=== PATIENT | female | born 1965 | race Caucasian/White ===

== ENCOUNTER 2017-08-09 18:30 | Emergency (ER) | END 2017-08-10 01:16 | disposition home or self-care (01) ==

== ENCOUNTER 2018-03-29 12:13 | Emergency (ER) | END 2018-03-29 14:05 | disposition home or self-care (01) ==

== ENCOUNTER 2018-09-16 12:27 | Emergency (ER) | payer MEDICAID ==
[~2018-09-16] VITALS: Ht 167.6 cm; Wt 97.5 kg
[~2018-09-16 12:27] MED LIST: ALBU2.5V3 NEB; ALBU8.5H8 INH; AZIT250T PO; BECL8.7A INH; D-ME473S2 PO; DICL100G37 TOP; FLUT12HF IH; GUAI5SYR2 PO; IBUP-1542 PO; OMEP20CA16 PO; PHENTERMINE
[2018-09-16 12:51] VITALS: Ht 167.6 cm; Wt 97.5 kg
[2018-09-16] MEDS ORDERED: DICL100G37 TOP (14:11)
[2018-09-16] MEDS ORDERED: BENZ-6 PO (14:12)
[2018-09-16] MEDS ORDERED: ALBU18HF INHALATION (14:12)
[2018-09-16] MEDS ORDERED: ACET500C5 PO (14:13)
[2018-09-16 14:43] VITALS: BP 132/62; PULSE 66; RESP 20
--- NOTE | 2018-09-16 15:01 | ERD ---
ER Documentation Chief Complaint Chief Complaint Complains of a cough x 3 days HPI 52-year-old female patient with a past medical history of asthma presents the ED complaining of cough that started intermittently for the last 3 years, patient reports that she has chronic cough. Reports that she also has arthritis. States that she is here for medication refill for her cough as well as her arthritic pain. Denies any chest pain, shortness of breath, nausea, vomiting, diarrhea, neck stiffness. Patient reports that she has some left flank pain. Denies any dysuria, urgency, frequency, hematuria. Patient denies any trauma or injuries. Denies any smoking, alcohol use, drug use. ROS All systems reviewed and are negative except as per history of present illness. Medications Home Meds Active Scripts Acetaminophen* (Tylophen*) 500 Mg Capsule, 1 CAP PO Q6H PRN for PAIN AND OR ELEVATED TEMP, #20 CAP Prov:JOHN HUDSON PA-C 09/16/18 Albuterol Sulfate* (Ventolin HFA*) 18 Gm Hfa.aer.ad, 2 PUFF INHALATION Q4H, #1 INHALER Prov:JOHN HUDSON PA-C 09/16/18 Benzonatate* (Tessalon Perle*) 100 Mg Capsule, 100 MG PO Q8H PRN for COUGH, #20 CAP Prov:JOHN HUDSON PA-C 09/16/18 Diclofenac Sodium* (Voltaren* Gel) 1% -100 Gm Gel, 2 GM TOP QID, #1 TUB Prov:JOHN HUDSON PA-C 09/16/18 Diclofenac Sodium* (Voltaren* Gel) 1% -100 Gm Gel, 2 GM TOP QID, #1 TUB Prov:FILOMENA FENTON PA-C 03/29/18 Albuterol Sulfate* (Proair HFA*) 8.5 Gm Hfa.aer.ad, 2 PUFF INH Q4, #1 INHALER Prov:FILOMENA FENTON PA-C 03/29/18 Salmeterol Xinaf-Fluticasone* (Advair HFA*) 45/212 Aerosol Inhaler, 2 INH IH BID, #1 INHALER Prov:FILOMENA FENTON PA-C 03/29/18 Omeprazole* (Omeprazole*) 20 Mg Capsule.dr, 20 MG PO BID, #20 Prov:FILOMENA FENTON PA-C 03/29/18 Dextromethorphan Hb-Promethazine Hcl* (Promethazine DM* Syrup) 473 Ml Syrup, 5 ML PO Q6 PRN for COUGH for 5 Days, ML Prov:FILOMENA FENTON PA-C 03/29/18 Beclomethasone Dip* (Qvar 40*) 7.3 Gm Inha, 2 PUFF INH BID, #1 INHALER Prov:ERWIN GOSS PA-C 08/10/17 Azithromycin* (Zithromax*) 250 Mg Tablet, 250 MG PO .ZPACK DIRECTED, #6 TAB TAKE 500 MG (2 TABS) THE FIRST DAY THEN 250 MG (1 TAB) DAYS 2-5 Prov:ERWIN GOSS PA-C 08/10/17 Guaifenesin-Dextromethorphan* (Robitussin* DM) 100MG/10MG/5ML Syrup, 10 ML PO Q6H PRN for COUGH for 5 Days, ML Prov:ERWIN GOSS PA-C 08/10/17 Albuterol Sulfate* (Albuterol Sulfate* Neb) 0.083%-3 Ml Neb, 2.5 MG NEB Q4 PRN for SHORTNESS OF BREATH, #30 EA Prov:ERWIN GOSS PA-C 08/10/17 Ibuprofen* (Motrin*) 600 Mg Tab, 600 MG PO Q6, #30 TAB Prov:ERWIN GOSS PA-C 08/10/17 Reported Medications [Phentermine] No Conflict Check 08/20/10 Allergies Allergies: Coded Allergies: codeine (Verified Allergy, Severe, PALPITATIONS, 03/29/18) naproxen (Verified Allergy, Unknown, PER PT NOT GOOD FOR HER, 03/29/18) per pt PMhx/Soc Medical and Surgical Hx: pt denies Surgical Hx History of Surgery: No Anesthesia Reaction: No Hx Neurological Disorder: No Hx Respiratory Disorders: Yes (asthma) Hx Cardiac Disorders: No Hx Psychiatric Problems: No Hx Miscellaneous Medical Probl: No Hx Alcohol Use: No Hx Substance Use: No Hx Tobacco Use: No Smoking Status: Never smoker FmHx Family History: No diabetes, No coronary disease Physical Exam Vitals Vital Signs Date Temp Pulse Resp B/P (MAP) Pulse Ox O2 O2 Flow FiO2 Time Delivery Rate 09/16/18 98.0 66 20 132/62 98 14:43 (85) 09/16/18 97.8 83 20 137/65 98 12:51 (89) Physical Exam Const: [id number]-ive-[id number], well-nourished. In no acute distress. Head: Atraumatic, normocephalic Eyes: Normal Conjunctiva without injection. No purulent discharge. PERRL. EOMI ENT: Normal external ear. Ear canal without erythema. Tympanic membrane pearly franco without effusion or bulging. Nasal canal clear with normal turbinates. Moist oropharynx without tonsillar exudates. Non-erythematous pharynx. Uvula midline. No drooling. No trismus. Neck: Full range of motion. No meningismus. No cervical lymphadenopathy. Resp: Clear to auscultation bilaterally. No wheezing, rhonchi, rales, or crackles. No accessory muscle use. No retractions. Cardio: Regular rate and rhythm. No murmurs, rubs or gallops. Abd: Soft, non tender, non distended. Normal bowel sounds. No palpable masses. No rebound tenderness. No guarding. Skin: No petechiae or rashes Back: No midline tenderness. No CVA tenderness. Ext: No cyanosis, or edema. Neur: Awake and alert. Psych: Normal Mood and Affect Results 24 hrs Laboratory Tests Test 09/16/18 13:41 Bedside Urine pH (LAB) 8.5 Bedside Urine Protein (LAB) Negative Bedside Urine Glucose (UA) Negative Bedside Urine Ketones (LAB) Negative Bedside Urine Blood Negative Bedside Urine Nitrite (LAB) Negative Bedside Urine Leukocyte Esterase (L Negative POC Beta HCG, Qualitative NEGATIVE Procedures/MDM 52-year-old female patient with no significant past medical history presents ED complaining of right arthritic knee pain, persistent cough however is not wheezing. Patient is afebrile and nontoxic-appearing. Patient's pulse ox is 98%. Patient speaking in full sentences without any difficulty or respiratory distress. Patient will be given a prescription for Tessalon Perles, refill of her albuterol. Patient also reports that the Voltaren gel worked well for her pain, therefore it will be prescribed to patient. Patient's extremity symptoms have stabilized while they have been evaluated in the department and are appropriate for outpatient follow up. No evidence of fractures, dislocations, compartment syndrome, neurologic injury, vascular injury, open joint, open fracture, tendon laceration, septic arthritis, osteomyelitis, DVT, foreign body, or other emergent conditions. This patient presents to the ED with symptoms consistent with a viral acute upper respiratory infection. Patient is afebrile and has normal vital signs. Patient's physical exam include lungs which were clear to auscultation and a normal pulse oximetry. There is a low suspicion for a croup, pneumonia, pneumothorax, strep pharyngitis, otitis media, otitis externa, sinusitis, peritonsillar abscess, foreign body aspiration, mastoiditis, retropharyngeal abscess, epiglottitis, meningitis, sepsis or other emergent conditions. Diagnosis: Cough, Arthritis Discharge medications: Tylenol, Tessalon Perles, Ventolin Follow up with primary care physician in 1-2 days. Instructed patient to return to the ED sooner for any worsening symptoms. Patient's questions were answered. Patient is hemodynamically stable. Patient understood and agreed with discharge plan. Patient discharged stable. Disclaimer: Inadvertent spelling and grammatical errors are likely due to EHR/dictation software use and do not reflect on the overall quality of patient care. Also, please note that the electronic time recorded on this note does not necessarily reflect the actual time of the patient encounter. Departure Diagnosis: Primary Impression: Cough Additional Impression: Arthritis Condition: Stable Patient Instructions: Osteoarthritis: Common Sites, Osteoarthritis: Coping with Pain, Osteoarthritis: Exercise, Osteoarthritis: Tips for Daily Living, Cough, Chronic, Uncertain Cause, (Adult) Referrals: [facility] YOU HAVE RECEIVED A MEDICAL SCREENING EXAM AND THE RESULTS INDICATE THAT YOU DO NOT HAVE A CONDITION THAT REQUIRES URGENT TREATMENT IN THE EMERGENCY DEPARTMENT. FURTHER EVALUATION AND TREATMENT OF YOUR CONDITION CAN WAIT UNTIL YOU ARE SEEN IN YOUR DOCTORS OFFICE WITHIN THE NEXT 1-2 DAYS. IT IS YOUR RESPONSIBILITY TO M GLEN AN APPOINTMENT FOR FOLOW-UP CARE. IF YOU HAVE A PRIMARY DOCTOR --you should call your primary doctor and schedule an appointment IF YOU DO NOT HAVE A PRIMARY DOCTOR YOU CAN CALL OUR PHYSICIAN REFERRAL HOTLINE AT IF YOU CAN NOT AFFORD TO SEE A PHYSICIAN YOU CAN CHOSE FROM THE FOLLOWING [facility] [address] [facility]. [facility] [address] [facility] [address] [facility] [address] [facility] [address] [facility]. [facility] [address] [facility]. [facility] YOU HAVE RECEIVED A MEDICAL SCREENING EXAM AND THE RESULTS INDICATE THAT YOU DO NOT HAVE A CONDITION THAT REQUIRES URGENT TREATMENT IN THE EMERGENCY DEPARTMENT. FURTHER EVALUATION AND TREATMENT OF YOUR CONDITION CAN WAIT UNTIL YOU ARE SEEN IN YOUR DOCTORS OFFICE WITHIN THE NEXT 1-2 DAYS. IT IS YOUR RESPONSIBILITY TO MAKE AN APPOINTMENT FOR FOLOW-UP CARE. IF YOU HAVE A PRIMARY DOCTOR --you should call your primary doctor and schedule and appointment IF YOU DO NOT HAVE A PRIMARY DOCTOR YOU CAN CALL OUR PHYSICIAN REFERRAL HOTLINE AT . IF YOU CAN NOT AFFORD TO SEE A PHYSICIAN YOU CAN CHOSE FROM THE FOLLOWING PENDING SALE TO [facility]: [facility] [address] [place] [address] [facility] [address] [place], [place] [id number] [place] [address] [address] [place] [address] [facility]RGENT [facility]SPECIALTIES Additional Instructions: Llame al doctor MAANA y isrrael serge THEODORE PARA DENTRO DE 2-3 DON.Dgale a la secretaria que nosotros le instruimos hacer esta theodore.Avise o llame si edward condicin se empeora antes de la theodore. Regresa aqui si peor o no mejor. JOHN HUDSON PA-C September 16, 2018 15:01
== END 2018-09-16 14:47 | disposition home or self-care (01) ==
LOC: FTE 12:27
DX: R05 Cough (principal); J45.909 Unspecified asthma, uncomplicated; M19.90 Unspecified osteoarthritis, unspecified site
CPT/HCPCS: 81003; 81025; Z7502; 99283

== ENCOUNTER 2019-01-04 09:01 | Emergency (ER) | payer MEDICAID ==
[~2019-01-04] VITALS: Ht 165.1 cm; Wt 98.0 kg
[~2019-01-04 09:01] MED LIST changes: +ACET500C5 PO; +ALBU18HF INHALATION; +BENZ-6 PO
[2019-01-04 09:11] VITALS: Ht 165.1 cm; Wt 98.0 kg
[2019-01-04 10:32] VITALS: BP 127/76; PULSE 71; RESP 16
== END 2019-01-04 10:33 | disposition home or self-care (01) ==
LOC: E/R 09:01
DX: M79.10 Myalgia, unspecified site (principal); J45.909 Unspecified asthma, uncomplicated; R10.9 Unspecified abdominal pain
CPT/HCPCS: 36415; 71045; 80053; 81001; 85025; Z7502